=== PATIENT | male | born 1975 | race Caucasian/White ===

== ENCOUNTER 2017-02-16 07:32 | Emergency (ER) | payer OTHER ==
[2017-02-16] MEDS: Alum Hydrox/Mag Hydrox/Simeth 15 ML, Lidocaine 2% 15 ML PO ONE ×4 (08:11→08:12)
--- NOTE | 2017-02-16 08:23 | EDM.PDOC ---
ED HPI GENERAL MEDICAL PROBLEM - General Chief Complaint: Abdominal Pain Stated Complaint: pain in mid stomach Time Seen by Provider: 02/16/17 08:00 Source of Information: Reports: Patient History Limitations: Reports: No Limitations - History of Present Illness INITIAL COMMENTS - FREE TEXT/NARRATIVE: 41-year-old male with epigastric pain for the last 6 hours. It woke him from sleep last night and has not improved. He has had this same pain several times, usually bothering him at night. Last time he took some Pepto-Bismol and vomited it up, so didn't take anything this time. He has not had any abdominal surgeries in the past. No radiation of pain to the back, no lower abdominal pain or bowel changes. No nausea or vomiting or diarrhea. No chest pain. Onset: Unknown/Unsure (Woke up with pain in the middle the night) Location: Reports: Abdomen Quality: Reports: Ache, Burning Severity: Moderate Associated Symptoms: Reports: No Other Symptoms Abdominal Pain Score (Numeric/FACES): 8 - Related Data Allergies Allergy/AdvReac Type Severity Reaction Status Date / Time venom-honey bee Allergy Airway Verified 04/23/15 21:01 [bee venom (honey bee)] Tightness shell fish Allergy Airway Uncoded 04/23/15 21:01 Tightness Home Meds: Home Meds Naproxen 500 mg PO 02/16/17 [History] Past Medical History Gastrointestinal History: Reports: Other (See Below) Other Gastrointestinal History: c/o abd pain Musculoskeletal History: Reports: Fracture Dermatologic History: Reports: Eczema, Psoriasis - Past Surgical History Musculoskeletal Surgical History: Reports: Other (See Below) Social & Family History - Tobacco Use Smoking Status *Q: Never Smoker - Caffeine Use Caffeine Use: Reports: None ED ROS GENERAL - Review of Systems Review Of Systems: See Below Constitutional: Denies: Fever, Chills Respiratory: Denies: Shortness of Breath Cardiovascular: Denies: Chest Pain GI/Abdominal: Reports: Abdominal Pain. Denies: Nausea, Vomiting : Reports: No Symptoms Skin: Reports: Other (Has widespread psoriasis lesions) Neurological: Reports: No Symptoms ED EXAM, GI/ABD - Physical Exam Exam: See Below Exam Limited By: No Limitations General Appearance: Alert, Mild Distress Eyes: Right: Normal Appearance (Looks fairly comfortable) Respiratory/Chest: No Respiratory Distress GI/Abdominal Exam: Normal Bowel Sounds, Soft, Tender (Tender directly over the epigastric area only, no significant guarding or rebound) Extremities: No: Pedal Edema Neurological: Alert, Oriented Skin Exam: Other (Patient has diffuse asymmetric nonblanching psoriasis lesions on his trunk and extremities) Course - Vital Signs Last Recorded V/S: Last Vital Signs Temp 96.6 F 02/16/17 08:28 Pulse 52 L 02/16/17 07:43 Resp 18 02/16/17 07:43 BP 200/107 H 02/16/17 08:24 Pulse Ox - Orders/Labs/Meds Labs: Laboratory Tests 02/16/17 02/16/17 Range/Units 08:07 08:07 WBC 11.7 H (4.5-11.0) K/uL RBC 5.61 (4.30-5.90) M/uL Hgb 15.9 H (12.0-15.0) g/dL Hct 46.1 (40.0-54.0) % MCV 82 (80-98) fL MCH 28 (27-31) pg MCHC 35 (32-36) % Plt Count 233 (150-400) K/uL Neut % (Auto) 81 H (36-66) % Lymph % (Auto) 11 L (24-44) % [place] % (Auto) 7 H (2-6) % Eos % (Auto) 1 L (2-4) % Baso % (Auto) 0 (0-1) % Sodium 141 (140-148) mmol/L Potassium 3.9 (3.6-5.2) mmol/L Chloride 103 (100-108) mmol/L Carbon Dioxide 29 (21-32) mmol/L Anion Gap 9.1 (5.0-14.0) mmol/L BUN 9 (7-18) mg/dL Creatinine 1.0 (0.8-1.3) mg/dL Est Cr Clr Drug Dosing 108.75 mL/min Estimated GFR (MDRD) > 60 (>60) Glucose 118 H (74-106) mg/dL Calcium 8.7 (8.5-10.1) mg/dL Total Bilirubin 0.4 (0.2-1.0) mg/dL AST 18 (15-37) U/L ALT 38 (12-78) U/L Alkaline Phosphatase 126 H (46-116) U/L Total Protein 7.2 (6.4-8.2) g/dL Albumin 4.0 (3.4-5.0) g/dL Globulin 3.2 (2.3-3.5) g/dL Albumin/Globulin Ratio 1.3 (1.2-2.2) Amylase 46 (25-115) U/L Lipase 119 (73-393) U/L Meds: Medications Discontinued Medications Generic Name Dose Route Start Last Admin Trade Name Marce PRN Reason Stop Dose Admin Al Hydroxide/Mg Hydroxide 15 0 ml 02/16/17 08:08 02/16/17 08:12 ml/ Lidocaine HCl 15 ml PO 02/16/17 08:09 15 ml ONETIME ONE Administration - Re-Assessments/Exams Free Text/Narrative Re-Assessment/Exam: 02/16/17 08:26 A GI cocktail was given which improved his symptoms. CBC, CMP, amylase and lipase were obtained. 02/16/17 08:51 After 30 minutes the patient's pain was markedly improved. Amylase and lipase were normal, alkaline phosphatase just slightly elevated the rest of his labs were normal. Blood pressure improved but was still elevated. I'm going to recommend the patient take 40 mg of omeprazole daily for 3 consecutive weeks, and return if not improving satisfactorily. He also needs to monitor his blood pressure and recheck with his primary physician in the next 1-2 weeks. Departure - Departure Time of Disposition: 09:08 Disposition: Home, Self-Care 01 Condition: Good Clinical Impression: Abdominal pain Qualifiers: Abdominal location: epigastric Qualified Code(s): R10.13 - Epigastric pain - Discharge Information Instructions: Abdominal Pain, Adult, [id number] Referrals: Robert Mcelroy MD [Primary Care Provider] - Forms: ED Department Discharge Care Plan Goals: Take 40 mg of omeprazole which can be purchased [id number], daily, 20 minutes before eating. Take for 3 consecutive weeks. Return anytime if worsening or concerns. Also monitor your blood pressure more closely and recheck with Dr. Mcelroy in the next 1-2 weeks.
[2017-02-16 08:24] VITALS: BP 200/107
== END 2017-02-16 09:09 | disposition home or self-care (01) ==
LOC: JP.ED 07:32
DX: R10.13 Epigastric pain (principal); L40.9 Psoriasis, unspecified; Z91.013 Allergy to seafood; Z91.030 Bee allergy status
CPT/HCPCS: 36415; 80053; 82150; 83690; 85025; 99284; A9270

== ENCOUNTER 2021-11-18 18:38 | Emergency (ER) | payer OTHER ==
[2021-11-18 20:51] VITALS: BP 145/74; PULSE 57
[2021-11-18] MEDS: Diphtheria,Pertussis(Acell),Tetanus Vaccine 0.5 ML Syringe IM ONE (21:17)
[2021-11-18] MEDS: Methocarbamol 500 MG Tab PO ONE (21:17)
[2021-11-18] MEDS: Bacitracin Oint 1 GM U/D Packet TOP ONE (21:17)
== END 2021-11-18 21:30 | disposition home or self-care (01) ==
LOC: JP.ED 18:38
DX: S01.01XA Laceration without foreign body of scalp, initial encounter (principal); Z91.030 Bee allergy status; Z91.013 Allergy to seafood; Z79.899 Other long term (current) drug therapy; Z87.891 Personal history of nicotine dependence; Z23 Encounter for immunization; W22.8XXA Striking against or struck by other objects, initial encounter; Y92.69 Other specified industrial and construction area as the place of occurrence of the external cause
CPT/HCPCS: 90471; 90715; 99001; 99283; 99284; A9270-GY